=== PATIENT | male | born 1990 | race Two or more races ===

== ENCOUNTER 2025-03-12 08:23 | Emergency (ER) | payer SELFPAY ==
[~2025-03-12] VITALS: Ht 172.7 cm; Wt 73.0 kg
[2025-03-12 08:29] VITALS: O2SAT 98
[2025-03-12] MEDS ORDERED: LIDOCAINE HCL/EPINEPHRINE 1%-EPI 1:100,000 20ML VIAL INFIL ONE (09:00)
[2025-03-12 09:21] VITALS: BP 136/77; PULSE 95; RESP 16; TEMP 36.9; O2SAT 98
== END 2025-03-12 09:30 | disposition home or self-care (01) ==
LOC: ER 08:23
DX: S01.412A Laceration without foreign body of left cheek and temporomandibular area, initial encounter (principal); W06.XXXA Fall from bed, initial encounter; Y93.89 Activity, other specified; Y92.89 Other specified places as the place of occurrence of the external cause; Y99.8 Other external cause status
CPT/HCPCS: 12014; 99283; J2004; Z7610